=== PATIENT | male | born 1980 | race Two or more races ===

== ENCOUNTER 2018-03-18 12:41 | Emergency (ER) | payer SELFPAY ==
[~2018-03-18] VITALS: Ht 167.6 cm; Wt 87.1 kg
[2018-03-18 12:52] VITALS: BP 131/90
[2018-03-18 14:42] LABS: Basophils # (auto) 0 uL; Basophils % (auto) 0.6 % (0.0-2.0); Eosinophils # (auto) 0.2 uL; Eosinophils % (auto) 2.5 % (0.0-7.0); Hematocrit 44.1 % (41.0-53.0); Hemoglobin 15.2 g/dL (13.5-17.5); Lymphocytes # (auto) 2.2 uL; Lymphocytes % (auto) 34.2 % (10.0-50.0); Mean Corpuscular Hemoglobin 31.4 pg (28.0-32.0); Mean Corpuscular Hgb Conc. 34.4 g/dL (32.0-36.0); Mean Corpuscular Volume 91.5 fL (80.0-100.0); Monocytes # (auto) 0.5 uL; Monocytes % (auto) 7.5 % (0.0-12.0); Neutrophils # (auto) 3.6 uL; Neutrophils % (auto) 55.2 % (37.0-80.0); Nucleated Red Blood Cells % 0.1 %; Platelet Count (auto) 231 10^3/uL (140-450); Red Blood Cells 4.82 10^6/uL (4.5-5.90); Red Cell Distribution Width 13.8 % (11.8-14.3); White Blood Cell 6.5 10^3/uL (4.4-10.8)
[2018-03-18 15:07] LABS: Alanine Aminotransferase 25 U/L (16-61); Albumin 4.1 g/dL (3.4-5.0); Anion Gap 1 (5-15); Aspartate Aminotransferase 12 U/L (15-37); BUN/Creatinine Ratio 17.9; Blood Urea Nitrogen 15 mg/dL (7-18); Calcium 8.5 mg/dL (8.5-10.1); Carbon Dioxide 30 mmol/L (21-32); Chloride 106 mmol/L (98-107); GFR African American 131 mL/min; GFR Non-African American 108 mL/min; Glucose 104 mg/dL (74-106); Magnesium 2.4 mg/dL (1.6-2.6); Potassium 3.9 mmol/L (3.5-5.1); Sodium 137 mmol/L (136-145)
[2018-03-18 15:11] LABS: Alkaline Phosphatase 123 U/L (45-117); Bilirubin, Total 0.3 mg/dL (0.2-1.0)
== END 2018-03-18 17:09 | disposition left against medical advice (07) ==
LOC: EDSEX 12:47 → ER 12:47 → EDBD 12:47 → ER 17:09
DX: R51 Headache (principal)
CPT/HCPCS: 36415; 70450; 80053; 83735; 84484; 85025; 93005

== ENCOUNTER 2020-09-30 16:45 | Emergency (ER) | payer SELFPAY ==
[~2020-09-30] VITALS: Ht 170.2 cm; Wt 87.5 kg
[2020-09-30] MEDS ORDERED: ALPRAZolam 0.25 MG TAB PO ONE (19:15)
[2020-09-30] MEDS ORDERED: KETOROLAC TROMETH 60MG/2ML VIAL IM ONE (19:15)
[2020-09-30] MEDS ORDERED: METHOCARBAMOL 500 MG TAB PO ONE (19:15)
[2020-09-30 19:50] VITALS: BP 135/88
== END 2020-09-30 21:00 | disposition home or self-care (01) ==
LOC: ER 16:45
DX: S16.1XXA Strain of muscle, fascia and tendon at neck level, initial encounter (principal); S46.911A Strain of unspecified muscle, fascia and tendon at shoulder and upper arm level, right arm, initial encounter; X50.0XXA Overexertion from strenuous movement or load, initial encounter; Y93.89 Activity, other specified; Y92.89 Other specified places as the place of occurrence of the external cause; Y99.8 Other external cause status
CPT/HCPCS: J1885

== ENCOUNTER 2021-12-27 18:26 | Emergency (ER) | payer SELFPAY ==
[~2021-12-27] VITALS: Ht 167.6 cm; Wt 90.9 kg
[2021-12-27 19:25] VITALS: BP 132/87
[2021-12-27 19:37] LABS: Basophils # (auto) 0 10 ^3/uL (0-0.2); Basophils % (auto) 0.6 % (0.0-2.0); Eosinophils # (auto) 0.1 10 ^3/uL (0-0.8); Eosinophils % (auto) 1.4 % (0.0-7.0); Hematocrit 43.8 % (41.0-53.0); Hemoglobin 14.9 g/dL (13.5-17.5); Lymphocytes # (auto) 2.2 10 ^3/uL (0.4-5.4); Lymphocytes % (auto) 31.8 % (10.0-50.0); Mean Corpuscular Hemoglobin 31.5 pg (28.0-32.0); Mean Corpuscular Hgb Conc. 34.1 g/dL (32.0-36.0); Mean Corpuscular Volume 92.3 fL (80.0-100.0); Monocytes # (auto) 0.5 10 ^3/uL (0-1.3); Monocytes % (auto) 7.5 % (0.0-12.0); Neutrophils # (auto) 4.1 10 ^3/uL (1.6-8.6); Neutrophils % (auto) 58.7 % (37.0-80.0); Nucleated Red Blood Cells % 0.1 %; Red Blood Cells 4.74 10^6/uL (4.5-5.90); Red Cell Distribution Width 13.8 % (11.8-14.3)
[2021-12-27 19:51] LABS: Albumin 3.9 g/dL (3.4-5.0); Calcium 8.9 mg/dL (8.5-10.1)
[2021-12-27 19:56] LABS: BUN/Creatinine Ratio 12.7; Bilirubin, Total 0.2 mg/dL (0.2-1.0); Total Protein 7.2 g/dL (6.4-8.2)
[2021-12-27 19:57] LABS: INR 0.91 (0.9-1.15); Partial Thromboplastin Time 26.4 sec (24.6-33.4)
[2021-12-27] MEDS ORDERED: TRAM-297 PO (21:28)
== END 2021-12-27 21:56 | disposition home or self-care (01) ==
LOC: EDBD 18:26 → ER 18:26
DX: M79.10 Myalgia, unspecified site (principal)
CPT/HCPCS: 36415; 70450; 71045; 80053; 84484; 85025; 85610; 85730; 93005

== ENCOUNTER 2022-03-28 12:06 | Emergency (ER) | payer SELFPAY ==
[~2022-03-28] VITALS: Ht 165.1 cm; Wt 107.0 kg
[~2022-03-28 12:06] MED LIST: TRAM-297 PO
[2022-03-28] MEDS ORDERED: IBU600T PO (14:02)
[2022-03-28 15:03] VITALS: BP 109/71
== END 2022-03-28 15:06 | disposition home or self-care (01) ==
LOC: ER 12:06
DX: R51.9 Headache, unspecified (principal)
CPT/HCPCS: 70450

== ENCOUNTER 2022-04-07 08:29 | Emergency (ER) | payer SELFPAY ==
[~2022-04-07] VITALS: Ht 165.1 cm; Wt 107.0 kg
[~2022-04-07 08:29] MED LIST changes: +IBU600T PO
[2022-04-07 08:44] VITALS: BP 125/81
== END 2022-04-07 09:05 | disposition left against medical advice (07) ==
LOC: ER 08:29
DX: R51.9 Headache, unspecified (principal); Z53.21 Procedure and treatment not carried out due to patient leaving prior to being seen by health care provider

== ENCOUNTER 2022-05-18 10:30 | Emergency (ER) | payer SELFPAY ==
[~2022-05-18] VITALS: Ht 165.1 cm; Wt 109.0 kg
[2022-05-18] MEDS ORDERED: diphenhdrAMINE HCL 25 MG CAP PO ONE ×2 (11:45→17:00)
[2022-05-18] MEDS ORDERED: HYDROcodone-ACET 5/325MG TAB PO ONE ×2 (11:45→17:00)
[2022-05-18] MEDS ORDERED: METOCLOPRAMIDE HCL 10 MG TAB PO ONE ×2 (11:45→17:00)
[2022-05-18] MEDS ORDERED: KETOROLAC TROMETH 30 MG/ML 1ML VIAL IM ONE ×2 (11:45→17:00)
[2022-05-18 17:43] VITALS: BP 133/68
== END 2022-05-18 13:49 | disposition left against medical advice (07) ==
LOC: ER 10:30
DX: S16.1XXA Strain of muscle, fascia and tendon at neck level, initial encounter (principal); R51.9 Headache, unspecified; M25.512 Pain in left shoulder; X58.XXXA Exposure to other specified factors, initial encounter; Y93.89 Activity, other specified; Y92.89 Other specified places as the place of occurrence of the external cause; Y99.8 Other external cause status
CPT/HCPCS: 93005; 99283; J8597

== ENCOUNTER 2022-07-16 09:36 | Inpatient (IN) | payer MEDICAID ==
[~2022-07-16] VITALS: Ht 165.1 cm; Wt 114.3 kg
[2022-07-16] MEDS ORDERED: ACETAMINOPHEN 500 MG TAB PO ONE (11:00)
[2022-07-16] MEDS ORDERED: IBUPROFEN 600 MG TAB PO ONE (12:00)
[2022-07-16] MEDS ORDERED: ASPirin 81 mg TAB PO ONE (12:15)
[2022-07-16 12:58] LABS: Basophils # (auto) 0 10 ^3/uL (0-0.2); Basophils % (auto) 0.5 % (0.0-2.0); Eosinophils # (auto) 0.2 10 ^3/uL (0-0.8); Eosinophils % (auto) 3.2 % (0.0-7.0); Hematocrit 43.8 % (41.0-53.0); Lymphocytes # (auto) 2.1 10 ^3/uL (0.4-5.4); Lymphocytes % (auto) 34.7 % (10.0-50.0); Mean Corpuscular Hemoglobin 30.1 pg (28.0-32.0); Mean Corpuscular Hgb Conc. 34.2 g/dL (32.0-36.0); Monocytes # (auto) 0.5 10 ^3/uL (0-1.3); Monocytes % (auto) 7.9 % (0.0-12.0); Neutrophils # (auto) 3.3 10 ^3/uL (1.6-8.6); Neutrophils % (auto) 53.7 % (37.0-80.0); Nucleated Red Blood Cells % 0.2 %; Red Blood Cells 4.97 10^6/uL (4.5-5.90); Red Cell Distribution Width 14.4 % (11.8-14.3); White Blood Cell 6.2 10^3/uL (4.4-10.8)
[2022-07-16 13:49] LABS: Albumin 3.6 g/dL (3.4-5.0); Calcium 8.8 mg/dL (8.5-10.1); Magnesium 2.2 mg/dL (1.6-2.6)
[2022-07-16 13:52] LABS: BUN/Creatinine Ratio 18.6 (10.0-20.0); Bilirubin, Total 0.6 mg/dL (0.2-1.0); Phosphorus 2.7 mg/dL (2.5-4.90); Total Protein 7.3 g/dL (6.4-8.2)
[2022-07-16] MEDS ORDERED: HYDROcodone-ACET 5/325MG TAB PO PRN (17:45)
[2022-07-16] MEDS ORDERED: NITROGLYCERIN 0.4 MG SL TAB SL PRN (17:45)
[2022-07-16] MEDS ORDERED: MORPHINE SULFATE INJ 2 MG/ml SYRG IV PRN ×2 (17:45)
[2022-07-16] MEDS ORDERED: ACETAMINOPHEN 325 MG TAB PO PRN (17:45)
[2022-07-16] MEDS ORDERED: ENOXAPARIN SOD 100 MG/1 ML SYRINGE SC ONE (17:45)
[2022-07-16] MEDS ORDERED: PANTOPRAZOLE 40 MG/10 ML VIAL INJ IV ONE (18:00)
[2022-07-16 18:57] LABS: Blood Alcohol < 3.0 mg/dL (0-5)
[2022-07-16 19:01] LABS: Cholesterol 227 mg/dL (< 200); HDL Cholesterol 37 mg/dL (40-59); LDL Cholesterol 164 mg/dL (< 100); Triglycerides 238 mg/dL (< 150)
[2022-07-17 06:31] LABS: Albumin 3.4 g/dL (3.4-5.0); Basophils # (auto) 0 10 ^3/uL (0-0.2); Basophils % (auto) 0.5 % (0.0-2.0); Calcium 8.7 mg/dL (8.5-10.1); Eosinophils # (auto) 0.2 10 ^3/uL (0-0.8); Eosinophils % (auto) 3.4 % (0.0-7.0); Hematocrit 39.4 % (41.0-53.0); Hemoglobin 14.2 g/dL (13.5-17.5); Lymphocytes # (auto) 2.1 10 ^3/uL (0.4-5.4); Mean Corpuscular Hemoglobin 31.2 pg (28.0-32.0); Mean Corpuscular Hgb Conc. 36.2 g/dL (32.0-36.0); Mean Corpuscular Volume 86.3 fL (80.0-100.0); Monocytes # (auto) 0.4 10 ^3/uL (0-1.3); Monocytes % (auto) 7.5 % (0.0-12.0); Neutrophils % (auto) 52.6 % (37.0-80.0); Nucleated Red Blood Cells % 0.1 %; Potassium 3.9 mmol/L (3.5-5.1); Red Blood Cells 4.57 10^6/uL (4.5-5.90); White Blood Cell 5.7 10^3/uL (4.4-10.8)
[2022-07-17 06:33] LABS: BUN/Creatinine Ratio 21.7 (10.0-20.0)
[2022-07-17 06:37] LABS: Bilirubin, Total 0.3 mg/dL (0.2-1.0); Total Protein 7.3 g/dL (6.4-8.2)
[2022-07-17 08:46] LABS: Hepatitis B Surface Antibody Negative (Negative)
[2022-07-17 09:25] LABS: Hepatitis A Total Antibody Positive (Negative)
[2022-07-17] MEDS ORDERED: LORazepam 2MG/ML-1ML VIAL IV PRN (09:45)
[2022-07-17] MEDS: ASPirin 81 mg TAB PO SCH (10:44)
[2022-07-17] MEDS: PANTOPRAZOLE 40 MG/10 ML VIAL INJ IV SCH (10:44)
[2022-07-17] MEDS: ENOXAPARIN SOD 40 MG/0.4 ML SYRINGE SC SCH (10:44)
[2022-07-17 12:44] LABS: Hepatitis C Antibody Negative (Negative)
[2022-07-18 06:49] LABS: Basophils # (auto) 0 10 ^3/uL (0-0.2); Basophils % (auto) 0.7 % (0.0-2.0); Eosinophils # (auto) 0.2 10 ^3/uL (0-0.8); Eosinophils % (auto) 3.4 % (0.0-7.0); Hematocrit 41.3 % (41.0-53.0); Hemoglobin 14.6 g/dL (13.5-17.5); Lymphocytes # (auto) 2.1 10 ^3/uL (0.4-5.4); Lymphocytes % (auto) 34.5 % (10.0-50.0); Mean Corpuscular Hemoglobin 30.8 pg (28.0-32.0); Mean Corpuscular Hgb Conc. 35.3 g/dL (32.0-36.0); Mean Corpuscular Volume 87.3 fL (80.0-100.0); Monocytes # (auto) 0.5 10 ^3/uL (0-1.3); Monocytes % (auto) 7.7 % (0.0-12.0); Neutrophils # (auto) 3.2 10 ^3/uL (1.6-8.6); Neutrophils % (auto) 53.7 % (37.0-80.0); Nucleated Red Blood Cells % 0.2 %; Red Blood Cells 4.73 10^6/uL (4.5-5.90); Red Cell Distribution Width 14.3 % (11.8-14.3)
[2022-07-18 07:18] LABS: Potassium 3.9 mmol/L (3.5-5.1)
[2022-07-18 07:20] LABS: BUN/Creatinine Ratio 21.4 (10.0-20.0)
[2022-07-18] MEDS: PANTOPRAZOLE 40 MG/10 ML VIAL INJ IV SCH (10:07)
[2022-07-18] MEDS: ASPirin 81 mg TAB PO SCH (10:07)
[2022-07-18] MEDS: ENOXAPARIN SOD 40 MG/0.4 ML SYRINGE SC SCH (10:08)
[2022-07-18] MEDS ORDERED: GADOTERATE MEG 10 MMOL/20ml INJ (0.5MMOL/ml) IV ONE (13:33)
[2022-07-18 13:35] VITALS: BP 131/85
[2022-07-18 16:50] VITALS: BP 117/82
[2022-07-18 22:00] VITALS: BP 106/66
[2022-07-18 23:19] LABS: Urine Bacteria NONE SEEN /hpf (None Seen); Urine Blood Negative /uL (Negative); Urine Mucus FEW (None Seen); Urine Specific Gravity 1.027 (1.001-1.035); Urine WBC 1 /hpf (0 - 3)
[2022-07-18 23:28] LABS: Alcohol, Urine < 3.0 mg/dL (0-10); Amphetamine Screen, Urine NEGATIVE (NEGATIVE); Barbiturate Scree,Urine NEGATIVE (NEGATIVE); Benzodiazephine Screen, Urine NEGATIVE (NEGATIVE); Cannabinoid Screen, Urine NEGATIVE (NEGATIVE); Cocaine Screen, Urine NEGATIVE (NEGATIVE); Opiate Scree,Urine NEGATIVE (NEGATIVE); Phencyclidine Screen, Urine NEGATIVE (NEGATIVE)
[2022-07-19 05:00] VITALS: BP 101/71
[2022-07-19 06:02] LABS: INR 0.93 (0.9-1.15)
[2022-07-19 06:11] LABS: Potassium 3.9 mmol/L (3.5-5.1)
[2022-07-19 06:22] LABS: Albumin 3.6 g/dL (3.4-5.0); BUN/Creatinine Ratio 23.9 (10.0-20.0); Bilirubin, Total 0.5 mg/dL (0.2-1.0); Total Protein 7.4 g/dL (6.4-8.2)
[2022-07-19 09:00] VITALS: BP 116/76
[2022-07-19] MEDS: PANTOPRAZOLE 40 MG/10 ML VIAL INJ IV SCH (10:54)
[2022-07-19] MEDS: ASPirin 81 mg TAB PO SCH (10:55)
[2022-07-19] MEDS: ENOXAPARIN SOD 40 MG/0.4 ML SYRINGE SC SCH (10:55)
[2022-07-19 12:08] VITALS: BP 116/76
[2022-07-19 13:00] VITALS: BP 104/50
== END 2022-07-19 12:30 | disposition home or self-care (01) | DRG 103 ==
LOC: ER 09:36 → TELE 17:52 → TELE-CENTR 07-18 13:15
PROVIDERS: ADMIT Registered Nurse; ATTEND Internal Medicine Pulmonary Disease
DX: G43.909 Migraine, unspecified, not intractable, without status migrainosus (principal); Z68.41 Body mass index [BMI] 40.0-44.9, adult; R07.89 Other chest pain; E66.01 Morbid (severe) obesity due to excess calories; R56.9 Unspecified convulsions; E78.5 Hyperlipidemia, unspecified; K76.0 Fatty (change of) liver, not elsewhere classified; Z83.3 Family history of diabetes mellitus
CPT/HCPCS: 36415; 70450; 70551; 70553; 72142; 76705; 80048; 80053; 80061; 80307; 80320; 81001; 82728; 82977; 83036; 83735; 84100; 84443; 84484; 85025; 85610; 86704; 86706; 86708; 86803; 87340; 93306; 95819; C9113; G0378

== ENCOUNTER 2022-10-06 13:30 | Inpatient (IN) | payer SELFPAY ==
[~2022-10-06] VITALS: Ht 165.1 cm; Wt 112.7 kg
[2022-10-06 14:14] LABS: Basophils # (auto) 0 10 ^3/uL (0-0.2); Basophils % (auto) 0.6 % (0.0-2.0); Eosinophils # (auto) 0.2 10 ^3/uL (0-0.8); Eosinophils % (auto) 2.6 % (0.0-7.0); Hematocrit 43.4 % (41.0-53.0); Hemoglobin 14.7 g/dL (13.5-17.5); Lymphocytes # (auto) 2.2 10 ^3/uL (0.4-5.4); Lymphocytes % (auto) 33.1 % (10.0-50.0); Mean Corpuscular Hgb Conc. 33.9 g/dL (32.0-36.0); Mean Corpuscular Volume 88.4 fL (80.0-100.0); Monocytes # (auto) 0.3 10 ^3/uL (0-1.3); Monocytes % (auto) 4.3 % (0.0-12.0); Neutrophils # (auto) 3.9 10 ^3/uL (1.6-8.6); Neutrophils % (auto) 59.4 % (37.0-80.0); Nucleated Red Blood Cells % 0.2 %; Red Blood Cells 4.91 10^6/uL (4.5-5.90); Red Cell Distribution Width 14.1 % (11.8-14.3); White Blood Cell 6.5 10^3/uL (4.4-10.8)
[2022-10-06 14:31] LABS: Albumin 3.7 g/dL (3.4-5.0); BUN/Creatinine Ratio 19.1 (10.0-20.0); Calcium 8.6 mg/dL (8.5-10.1); Potassium 3.7 mmol/L (3.5-5.1)
[2022-10-06 14:33] LABS: Bilirubin, Total 0.3 mg/dL (0.2-1.0); Total Protein 7.3 g/dL (6.4-8.2)
[2022-10-06] MEDS ORDERED: ASPirin 325 MG TAB PO ONE (14:45)
[2022-10-06] MEDS ORDERED: NITROGLYCERIN 0.4 MG SL TAB SL ONE (14:45)
[2022-10-06 15:26] VITALS: BP 106/71
[2022-10-06] MEDS ORDERED: DEXTROSE (50%) 50ML SYRG IV PRN (19:15)
[2022-10-06] MEDS ORDERED: MORPHINE SULFATE 4 MG/ML SYR/VIAL IV PRN (19:15)
[2022-10-06] MEDS ORDERED: ACETAMINOPHEN 325 MG TAB PO PRN (19:15)
[2022-10-06] MEDS ORDERED: ASPirin 325 MG TAB PO SCH (19:15)
[2022-10-06] MEDS ORDERED: NITROGLYCERIN 0.4 MG SL TAB SL PRN (19:15)
[2022-10-06] MEDS ORDERED: ONDANSETRON HCL 4 MG/2 ML VIAL IV PRN (19:15)
[2022-10-06] MEDS ORDERED: ATORVASTATIN 20 MG TAB PO SCH (22:00)
[2022-10-06] MEDS ORDERED: METOPROLOL TARTRATE 25 MG TAB PO SCH (22:00)
[2022-10-06] MEDS ORDERED: ACCU-CHEK COMFORT CURVE STRIP VI SCH (22:00)
[2022-10-06] MEDS ORDERED: ENOXAPARIN SOD 100 MG/1 ML SYRINGE SC SCH (22:00)
[2022-10-06] MEDS ORDERED: InsuLIN REG 1unit/0.01ml Soln (100units/ml) SC SCH (22:00)
[2022-10-07] MEDS ORDERED: ASPirin 81 mg TAB PO SCH (10:00)
[2022-10-07] MEDS ORDERED: DOCUSATE SOD 100 MG CAP PO SCH (10:00)
== END 2022-10-06 19:53 | disposition left against medical advice (07) | DRG 282 ==
LOC: ER 13:30 → TELE 19:10
PROVIDERS: ADMIT Nurse Practitioner Family; ATTEND Nurse Practitioner Family
DX: I21.4 Non-ST elevation (NSTEMI) myocardial infarction (principal); E78.5 Hyperlipidemia, unspecified; I20.0 Unstable angina; Z53.29 Procedure and treatment not carried out because of patient's decision for other reasons; G43.909 Migraine, unspecified, not intractable, without status migrainosus; K76.0 Fatty (change of) liver, not elsewhere classified; Z83.3 Family history of diabetes mellitus
CPT/HCPCS: 36415; 71045; 80053; 83735; 84100; 84484; 85025; 93005; G0378

== ENCOUNTER 2023-01-09 10:15 | Emergency (ER) | payer SELFPAY ==
[~2023-01-09] VITALS: Ht 165.1 cm; Wt 113.7 kg
[2023-01-09 10:18] VITALS: BP 135/79; RESP 20; O2SAT 98
[2023-01-09 10:40] LABS: Basophils # (auto) 0 10 ^3/uL (0-0.2); Basophils % (auto) 0.6 % (0.0-2.0); Eosinophils # (auto) 0.3 10 ^3/uL (0-0.8); Eosinophils % (auto) 3.4 % (0.0-7.0); Hematocrit 43.2 % (41.0-53.0); Hemoglobin 14.9 g/dL (13.5-17.5); Lymphocytes # (auto) 2.7 10 ^3/uL (0.4-5.4); Lymphocytes % (auto) 35.8 % (10.0-50.0); Mean Corpuscular Hemoglobin 30.8 pg (28.0-32.0); Mean Corpuscular Hgb Conc. 34.6 g/dL (32.0-36.0); Monocytes # (auto) 0.5 10 ^3/uL (0-1.3); Monocytes % (auto) 6.3 % (0.0-12.0); Neutrophils % (auto) 53.9 % (37.0-80.0); Nucleated Red Blood Cells % 0.1 %; Red Blood Cells 4.85 10^6/uL (4.5-5.90); Red Cell Distribution Width 14.9 % (11.8-14.3); White Blood Cell 7.4 10^3/uL (4.4-10.8)
[2023-01-09 10:59] LABS: Alanine Aminotransferase 106 U/L (7-40); Albumin 4.5 g/dL (3.2-4.8); Alkaline Phosphatase 108 U/L (46-116); Anion Gap 7 (5-15); Aspartate Aminotransferase 47 U/L (13-40); BUN/Creatinine Ratio 18.1 (10.0-20.0); Bilirubin, Total 0.5 mg/dL (0.2-1.0); Blood Urea Nitrogen 15 mg/dL (9-23); Calcium 9.3 mg/dL (8.5-10.1); Carbon Dioxide 25 mmol/L (20-30); Chloride 106 mmol/L (98-107); Glucose 98 mg/dL (74-106); Potassium 4.1 mmol/L (3.5-5.1); Sodium 138 mmol/L (136-145)
[2023-01-09 11:00] LABS: Total Protein 7.5 g/dL (5.7-8.2)
[2023-01-09 11:30] VITALS: PULSE 65
[2023-01-09 11:47] LABS: Urine Bacteria NONE SEEN /hpf (None Seen); Urine Blood Negative /uL (Negative); Urine Clarity Clear (Clear); Urine Color Yellow (Yellow); Urine Protein, UAD Negative (Negative); Urine Specific Gravity 1.022 (1.001-1.035); Urine Urobilinogen Normal (Negative); Urine WBC <1 /hpf (0 - 3)
== END 2023-01-09 13:13 | disposition home or self-care (01) ==
LOC: ER 10:15
DX: R07.89 Other chest pain (principal)
CPT/HCPCS: 36415; 71046; 80053; 81001; 83735; 83880; 84484; 85025; 93005